=== PATIENT | female | born 2005 | race Caucasian/White ===

== ENCOUNTER → 2023-10-09 | Outpatient (CLI) | payer OTHER | END | disposition home or self-care (01) | LOC: RAD 08:32 | PROVIDERS: ATTEND Neuromusculoskeletal Medicine & OMM | DX: R20.0 Anesthesia of skin (principal) | CPT/HCPCS: 95816 ==

== ENCOUNTER 2023-10-23 13:47 | Outpatient (CLI) | payer OTHER | END 2023-10-23 23:59 | disposition home or self-care (01) | LOC: MRI 13:47 | PROVIDERS: ATTEND Neuromusculoskeletal Medicine & OMM | DX: R20.0 Anesthesia of skin (principal) | CPT/HCPCS: 70551 ==

== ENCOUNTER 2024-03-11 15:12 | Outpatient (CLI) | payer OTHER | END 2024-03-11 23:59 | disposition home or self-care (01) | LOC: MRI02 15:12 | PROVIDERS: ATTEND Physician Assistant Surgical | DX: S92.211A Displaced fracture of cuboid bone of right foot, initial encounter for closed fracture (principal); S93.401A Sprain of unspecified ligament of right ankle, initial encounter; M79.671 Pain in right foot; X58.XXXA Exposure to other specified factors, initial encounter; Y93.89 Activity, other specified; Y92.89 Other specified places as the place of occurrence of the external cause; Y99.8 Other external cause status | CPT/HCPCS: 73721 ==

== ENCOUNTER 2024-10-07 11:57 | Day surgery (SDC) | payer MEDICAID, OTHER ==
[2024-09-29 10:18] LABS: MEAN PLATELET VOLUME 8.9 FL (7.4-10.4); PRE OP HEMATOCRIT 40.7 % (35.0-45.0); PRE OP HEMOGLOBIN 13.7 g/dL (12.0-16.0); PRE OP PLATELET COUNT 281 X10'3 (140-440); PRE OP WHITE BLOOD COUNT 7.4 10'3 (4.8-10.8); RED CELL DISTRIBUTION WIDTH 13.2 % (11.5-14.5)
[2024-09-29 10:19] LABS: LEUKOCYTE ESTERASE ,URINE NEGATIVE (Neg); NITRITES, URINE NEGATIVE (Neg); OCCULT BLOOD,URINE TRACE-INTACT (Neg)
[2024-09-29 10:24] LABS: UA COLLECTION TYPE NON-SPECIFIED
[2024-09-29 10:26] LABS: MUCUS STRANDS FEW /LPF (Neg); RENAL CELLS, URINE FEW /HPF; SQUAMOUS EPITHELIAL CELL,UR MANY /LPF (FEW)
[2024-09-29 10:36] LABS: CREATININE 0.67 MG/DL (0.40-0.90); PRE OP ALT 22 U/L (30-65); PRE OP ANION GAP 3 (8-16); PRE OP AST 14 U/L (10-37); PRE OP BILIRUB, TOTAL 0.6 MG/DL (0.0-1.0); PRE OP GLUCOSE 95 MG/DL (70-104); PRE OP POTASSIUM 4.0 MMOL/L (3.4-5.1); PRE OP SODIUM 138 MMOL/L (135-145); TOTAL CARBON DIOXIDE 29.6 MMOL/L (24-32); eGFR > 90 ML/MIN
[2024-09-29 10:47] LABS: HCG SERUM QL NEGATIVE
[~2024-10-07] VITALS: Ht 170.2 cm; Wt 80.9 kg
[2024-10-07] VITALS (8 sets, daily range): BP systolic 96–114; BP diastolic 54–70; PULSE 62–98; RESP 13–22; TEMP 98.9; O2SAT 95–100
[~2024-10-07 11:57] MED LIST: IBUP-24 PO; MULT-1085 PO
[2024-10-07] MEDS: ringers solution, lacted 1,000 ML IV SCH (12:21)
[2024-10-07] MEDS: VANCOMYCIN/H2O 1.5g/300mL PB 300 ML IV ONE (12:22)
--- NOTE | 2024-10-07 15:50 | ELECTROCARDIOGRAPH REPORT ---
[facility] Test Date: 2024-10-07 Test Time: 15:49:40 Pat Name: CHALINO GRIMES Department: [facility] Patient ID: [id number] Room: Gender: F [employer] Education Aide: SHARATH : 2005 Requested By: ROSEMARY ALTAMIRANO Order Number: [id number] Reading MD: Dr. Alton Altamirano Measurements Intervals [place] Rate: 60 P: 41 WA: 169 QRS: 35 QRSD: 87 T: 53 QT: 416 QTc: 416 Interpretive Statements Sinus rhythm Abnormal R-wave progression, delayed precordial transition Electronically Signed On 10-08-2024 12:03:[address] Alton Altamirano Please click the below link to view image of tracing.
[2024-10-07] MEDS ORDERED: fentaNYL/PF 50MCG/1 ML 2ML syringe ONE (15:56)
[2024-10-07] MEDS ORDERED: hydrALAZINE 20mg/ml inj. IV PRN (16:10)
[2024-10-07] MEDS ORDERED: labetalol 20mg/4ml (5mg/ml) syringe IV PRN (16:10)
[2024-10-07] MEDS ORDERED: ringers solution, lacted 1,000 ML IV SCH (16:10)
[2024-10-07] MEDS ORDERED: morphine 4 MG/ML inj SYRINge IV PRN (16:10)
[2024-10-07] MEDS ORDERED: HYDROmorphone/PF 0.2 MG/ML SYRINGE IV PRN (16:10)
[2024-10-07] MEDS ORDERED: midazolam 1 mg/ML 2ml injection ONE (16:14)
[2024-10-07] MEDS ORDERED: ROPIVAcaine 0.5% (5mg/ml) 30ml vial ONE (16:28)
[2024-10-07] MEDS ORDERED: 0.9 % SODIUM CHLORIDE 10 ML VIAL ONE (16:28)
[2024-10-07] MEDS ORDERED: dexamethasone sod phosphate 4mg/ml inj. ONE (16:28)
[2024-10-07] MEDS ORDERED: propofol inj 20 ML IV ONE (16:28)
[2024-10-07] MEDS ORDERED: ondansetron/PF 4mg/2ml inj ONE (16:28)
[2024-10-07] MEDS ORDERED: LIDOcaine 2% (20mg/ml) 5ml vial ONE (16:29)
[2024-10-07] MEDS ORDERED: bacitracin 15gm ointment TP ONE (17:04)
[2024-10-07] MEDS: ketorolac trometh 30MG/ML vial 30 MG/ML VIAL IV ONE (17:33)
[2024-10-07] MEDS: acetaminophen 1,000mg/100ml IV 100 ML IV PRN (17:33)
[2024-10-07] MEDS: ondansetron/PF 4mg/2ml inj IV PRN (17:39)
[2024-10-07] MEDS: HYDROmorphone/PF 0.2 MG/ML SYRINGE IV PRN (17:40)
[2024-10-07] MEDS: HYDROcodone/acetaminophen 5mg/325mg tablet PO ONE (18:24)
== END 2024-10-07 18:33 | disposition home or self-care (01) ==
LOC: PAS 11:57
PROVIDERS: ATTEND Podiatrist Foot & Ankle Surgery
DX: S93.491A Sprain of other ligament of right ankle, initial encounter (principal); M25.371 Other instability, right ankle; M25.471 Effusion, right ankle; M25.571 Pain in right ankle and joints of right foot; X58.XXXA Exposure to other specified factors, initial encounter; Y93.89 Activity, other specified; Y92.89 Other specified places as the place of occurrence of the external cause; Y99.8 Other external cause status; Z79.899 Other long term (current) drug therapy; Z88.0 Allergy status to penicillin; G43.909 Migraine, unspecified, not intractable, without status migrainosus; G89.18 Other acute postprocedural pain
CPT/HCPCS: 27696; 29895; 36415; 64445; 64447; 80053; 81001; 82948; 84703; 85025; 93005; A6222; C1713; J0131; J1100; J1171; J1885; J2003; J2250; J2405; J2704; J2795; J3010; J3375; J7030; J7120; Z7506; Z7508; Z7512; A4618; A6449; A7000; J3373; J7040